=== PATIENT | male | born 1970 | race Caucasian/White ===

== ENCOUNTER → 2020-01-28 | Outpatient (CLI) | payer BC ==
--- NOTE | 2020-01-28 11:12 | NM ---
EXAMINATION TYPE: NM hepatobiliary w CCK DATE OF EXAM: 01/28/2020 COMPARISON: NONE HISTORY: Abdominal pain in particular epigastric pain with heartburn and reflux-like symptoms per pat ient. TECHNIQUE: After the intravenous administration of 5.3 mCi Tc 99m Mebrofenin hepatobiliary scintigrap hy is performed. Immediate images post injection. FINDINGS: There is satisfactory initial accumulation of tracer by the liver. The gallbladder is visualized wit hin 10 minutes. The small bowel activity is noted within 40 minutes. At one hour CCK was administer ed, patient was injected with 1.7 mcg of Kinevac, and gallbladder ejection fraction is calculated at 95 %, not deviated from the normal range. Therefore there is no scintigraphic evidence of cystic or common bile duct obstruction to suggest acute cholecystitis. IMPRESSION: Ejection fraction is 95%, some consider this abnormal or a hyperkinetic response.
== END | disposition home or self-care (01) ==
LOC: RADNMMAIN 08:49
PROVIDERS: ATTEND Surgery
DX: R10.84 Generalized abdominal pain (principal)
CPT/HCPCS: 78227; A9537; J2805

== ENCOUNTER 2020-01-29 08:03 | Day surgery (SDC) | payer BC ==
[2020-01-28 10:52] VITALS: BMI 23.1
[~2020-01-29 08:03] MED LIST: LACTATED RINGERS 1,000 ML IV SCH; LIDOCAINE 1% (10MG/ML) FOR IV START INTRADERMA PRN
[2020-01-29 09:04] VITALS: TEMP 97.8
[2020-01-29] MEDS ORDERED: PROPOFOL 10 MG/ML 20 ML VIAL IV ONE (09:30)
[2020-01-29] MEDS ORDERED: LIDOCAINE 1% INJ 10MG/ML (20 ML MDV) ONE (09:30)
--- NOTE | 2020-01-29 09:37 | P.GSHP ---
History of Present Illness H&P Date: 01/29/20 Chief Complaint: GERD, diarrhea This a 49-year-old male who presents today for EGD and colonoscopy. Patient complains of GERD and diarrhea. He presents today for EGD and colonoscopy Past Medical History Past Medical History: GERD/Reflux Additional Past Medical History / Comment(s): LUQ pain for few months intermittently, IIH(idiopathic intracranial hypertension), having HIDA scan today History of Any Multi-Drug Resistant Organisms: None Reported Additional Past Surgical History / Comment(s): sebaceous cyst removed from neck, skin graft to calf after injury,colonoscopy Past Anesthesia/Blood Transfusion Reactions: No Reported Reaction Smoking Status: Former smoker Medications and Allergies Home Medications Medication Instructions Recorded Confirmed Type Multivitamins, Thera [Multivitamin 1 tab PO DAILY 01/28/20 01/29/20 History (formulary)] Pantoprazole Sodium [Protonix] 40 mg PO DAILY 01/28/20 01/29/20 History acetaZOLAMIDE [acetaZOLAMIDE ER] 1,000 mg PO DAILY 01/28/20 01/29/20 History Allergies Allergy/AdvReac Type Severity Reaction Status Date / Time No Known Allergies Allergy Verified 01/29/20 09:07 Surgical - Exam Vital Signs Temp Pulse Resp BP Pulse Ox 97.8 F 77 16 119/73 97 01/29/20 09:01 01/29/20 09:01 01/29/20 09:01 01/29/20 09:01 01/29/20 09:01 - General well developed, well nourished, no distress - Eyes PERRL - ENT normal pinna - Neck no masses - Respiratory normal expansion - Cardiovascular Rhythm: regular - Abdomen Abdomen: soft, non tender Assessment and Plan Assessment: GERD, diarrhea. We'll perform EGD and colonoscopy.
--- NOTE | 2020-01-29 09:58 | P.OP ---
Date of Procedure: 01/29/20 Preoperative Diagnosis: GERD Diarrhea Postoperative Diagnosis: Antral gastritis Mild esophagitis Normal colon Procedure(s) Performed: EGD Colonoscopy Anesthesia: MAC Surgeon: Warren Perkins Pathology: other (Antrum) Condition: stable Operative Findings: No PROCEDURE: The patient was placed on the endoscopy table in the lateral position. Digital rectal examination was performed which revealed no abnormalities. The prostate was symmetrical without nodules. Flexible colonoscope was then placed in the patient's anus and passed throughout the entire colon. The ileocecal valve was visualized. The cecum, ascending, transverse, descending and sigmoid colon were normal. The rectum was normal as well. There were no masses, polyps or diverticula noted in the entire colon. Next, the gastro-/oropharynx passed in the esophagus and stomach. Scope then placed through the pylorus. The first and second portion of the duodenum appeared normal. Scope summer back the antrum and this was mildly inflamed. Biopsies performed. Scope was retroflexed. There was a minimal hiatal hernia. and remainder stomach appeared normal. The GE junction was at 40 cm the distal esophagus. Minimal inflamed. The proximal esophagus appeared normal. Scope patient.
[2020-01-29 10:05] VITALS: BP 134/77
[2020-01-29 10:16] VITALS: PULSE 83; RESP 16
== END 2020-01-29 10:30 | disposition home or self-care (01) ==
LOC: ORWHC2ENDO 08:03
PROVIDERS: ATTEND Surgery
DX: R19.7 Diarrhea, unspecified (principal); K29.70 Gastritis, unspecified, without bleeding; K21.00 Gastro-esophageal reflux disease with esophagitis, without bleeding; K44.9 Diaphragmatic hernia without obstruction or gangrene; G93.2 Benign intracranial hypertension; E07.9 Disorder of thyroid, unspecified; Z87.2 Personal history of diseases of the skin and subcutaneous tissue; Z87.828 Personal history of other (healed) physical injury and trauma; Z98.890 Other specified postprocedural states; Z87.891 Personal history of nicotine dependence; Z79.899 Other long term (current) drug therapy
CPT/HCPCS: 45378; 43239; 88305; J2001; J2704